=== PATIENT | female | born 1950 | race Caucasian/White ===

== ENCOUNTER 2022-04-13 21:53 | Inpatient (IN) | payer MEDICARE, BC ==
[~2022-04-13] VITALS: Ht 167.6 cm; Wt 76.7 kg
--- NOTE | 2022-04-13 22:00 | NUR ---
2100- The patient is a new admission. The patient comes from [facility]. The Patient is aox4, verbalizes needs promptly and timely. The patient has an IV access 18g rac that is patent, and intact. No changes in condition from baseline noted. Skin check done and pictures taken. The patient has scab on both left and right knee. The patient has small sacral redness. The patient has no sob or complains of pain. Notified both MD for rehab(George) and admit MD (Lyssa) of new admission. No s/s of infection noted. All needs anticipated and met. Call light within reach, two side rails up, bed at lowest position, bed alarm on. Will continue to monitor throughout the shift. 0000- The patient request for sleeping medication. Notified new MD(Sissy) for sleeping medication. The patient has no complains of pain or sob. Will continue to monitor throughout the shift. 0300- The patient is resting and has no complains of pain or sob. Will continue to monitor throughout the shift.
[2022-04-13] MEDS ORDERED: SERT-440 PO (22:38)
[2022-04-13] MEDS ORDERED: BUPR150T10 PO (22:38)
[2022-04-13] MEDS ORDERED: ACYC400T19 PO (22:38)
[2022-04-13] MEDS ORDERED: CEFT1PIG2 IV (22:38)
[2022-04-14] MEDS: TRAZODONE 100 MG TABLET PO SCH ×2 (02:19→23:04)
[2022-04-14 06:07] VITALS: BP 139/67
[2022-04-14 07:54] VITALS: BP 140/83
[2022-04-14] MEDS: CEFTRIAXONE 1 G in IV DEXTROSE 5% 50 ML IV SCH (14:59)
[2022-04-14] MEDS ORDERED: CLONAZEPAM 0.5 MG TABLET PO PRN (15:00)
[2022-04-14 15:27] VITALS: BP 149/76
[2022-04-14] MEDS ORDERED: ACYCLOVIR 400 MG TABLET PO SCH (17:00)
--- NOTE | 2022-04-14 18:49 | NUR ---
0730-Rec'd patient in bed, asleep, no respiratory distress, on R/A and manuel well. Patient able to wake up on verbal commands, denies any pain. Peripheral to RT FA flushing well. Oral fluids encouraged as manuel. Call light at reach and encouraged to use it for help every time needed. Safety measures in place. 0800-Medication not reconciled, MD has been informed to reconcile medications. 1000-Routine rounds done, patient awake, sitting on her bed, communicates verbally with out a problem, denies any discomfort, VSS and as follows: BP144/76, p81, temperature 97.4, oxygen saturation 97%. 1500-Medication reconciled, IV atb dose Rocephin 1gm initiated as ordered, no ASE noted; IV infusing well, no s/s of infiltration noted; patient denies bladder discomfort, voids well, no hematuria noted. 1800-Patient in bed, assisted as needed; routine rounds and care provided at routine intervals. All needs anticipated and met.
[2022-04-14 20:59] VITALS: BP 154/83
[2022-04-14 21:26] LABS: THYROID STIMULATING HORMONE 7.113 mIU/mL (0.358-3.740)
[2022-04-14] MEDS ORDERED: ONDANSETRON 4 MG/2 ML VIAL IV PRN (21:30)
--- NOTE | 2022-04-14 23:00 | NUR ---
1915-The patient is asleep, no respiratory distress, on R/A and tolerating well. Patient able to wake up on verbal commands, denies any pain. Patient has a patent IV access on the rac that is clean, dry, patent, and intact. Oral fluids encouraged as manuel. Call light at reach and encouraged to use it for help every time needed. Safety measures in place. 2200-The patient request for an extra pillow. Item is given to the patient. The patient has no sob. Will continue to monitor throughout the shift. 0500-Routine rounds done, patient asleep and has no complains of pain. Will continue to monitor throughout the shift.
[2022-04-15 04:28] VITALS: BP 138/73
[2022-04-15 07:23] LABS: HEMATOCRIT 38.4 % (31.2-41.9); MEAN CORPUSCULAR HEMOGLOBIN 33.7 uug (24.7-32.8); MEAN CORPUSCULAR VOLUME 100.4 fL (75.5-95.3); PLATELET COUNT (AUTO) 201 K/uL (179-408)
[2022-04-15 07:46] LABS: CREATININE 1.2 mg/dL (0.6-1.3); POTASSIUM 3.8 mmol/L (3.5-5.1)
[2022-04-15 08:00] VITALS: BP 118/66
[2022-04-15] MEDS: buPROPion SR 150 MG TABLET.SA PO SCH (08:43)
[2022-04-15] MEDS: SERTRALINE HCL 100 MG TABLET PO SCH (08:44)
[2022-04-15] MEDS: CEFTRIAXONE 1 G in IV DEXTROSE 5% 50 ML IV SCH (15:26)
--- NOTE | 2022-04-15 15:54 | NUR ---
patient was insisting to go home AMA, risks and benefits explained SAI Baldemar was on the phone, and caregiver was at bedside, patient verbalized understanding of it, and agreed to stay, patient had watery diarrhea in the morning x2, dark green color, [employer] Chyryl made aware, order to collect if continues, patient did not have any diarrhea since then. no acute distress noted.
[2022-04-15 20:38] VITALS: BP 137/72
[2022-04-15] MEDS: TRAZODONE 100 MG TABLET PO SCH (21:53)
--- NOTE | 2022-04-15 23:00 | NUR ---
1920-The patient is asleep, no respiratory distress, on R/A and tolerating well. Patient able to wake up on verbal commands, denies any pain. Patient has a patent IV access on the rac that is clean, dry, patent, and intact. Call light at reach and encouraged to use it for help every time needed. Safety measures in place. 2100-The patient request for an extra blanket. Item is given to the patient. The patient has no sob. Will continue to monitor throughout the shift. 0500-Routine rounds done, patient asleep and has no complains of pain. Will continue to monitor throughout the shift.
[2022-04-16 04:30] VITALS: BP 127/75
[2022-04-16] MEDS: LEVOTHYROXINE SODIUM 50 MCG TABLET PO SCH ×2 (06:51→19:00)
[2022-04-16 07:45] VITALS: BP 134/61
[2022-04-16 08:00] VITALS: BP 127/75
--- NOTE | 2022-04-16 08:53 | NUR ---
INDIVIDUALIZED PLAN OF CARE
[2022-04-16] MEDS: buPROPion SR 150 MG TABLET.SA PO SCH (10:26)
[2022-04-16] MEDS: SERTRALINE HCL 100 MG TABLET PO SCH (10:26)
[2022-04-16] MEDS: CEFTRIAXONE 1 G in IV DEXTROSE 5% 50 ML IV SCH (14:44)
--- NOTE | 2022-04-16 16:35 | NUR ---
SHIFT NOTE; RECEIVED PATIENT IN ROOM ALERT AND ORIENTED X4 PATIENT STATES"THEY ARE TRYING TO KILL ME." KEEP GIVING MEDICATION TO THAT KEEP ME TIRED". EXPLAINED TO PATIENT THAT I WON'T GIVE YOU THAT MEDICATION UNLESS YOU REQUEST IT . PT VERBALIZED UNDERSTANDING. PT HAD PT TODAY AND TOLERATED WELL NO SIGNS OF DISTRESS NOTED. WILL ENDORSE TO HS NURSE. FALL AND SAFETY PRECAUTION MAINTAINED.
[2022-04-16 16:36] VITALS: BP 120/65
[2022-04-16] MEDS: ENSURE ENLIVE (VAN) 240 ML LIQUID PO SCH (17:08)
[2022-04-16 20:00] VITALS: BP 114/62
[2022-04-16] MEDS: TRAZODONE 100 MG TABLET PO SCH (21:00)
[2022-04-17 04:00] VITALS: BP 119/67
[2022-04-17 07:00] LABS: HEMATOCRIT 38.2 % (31.2-41.9); MEAN CORPUSCULAR HEMOGLOBIN 34.2 uug (24.7-32.8); MEAN CORPUSCULAR VOLUME 100.1 fL (75.5-95.3); PLATELET COUNT (AUTO) 218 K/uL (179-408)
[2022-04-17 07:14] LABS: CREATININE 1.2 mg/dL (0.6-1.3); MAGNESIUM 1.9 mg/dL (1.8-2.4); PHOSPHOROUS 4.5 mg/dL (2.5-4.9); POTASSIUM 3.8 mmol/L (3.5-5.1)
[2022-04-17 07:49] VITALS: BP 111/58
[2022-04-17] MEDS: SERTRALINE HCL 100 MG TABLET PO SCH (08:27)
[2022-04-17] MEDS: buPROPion SR 150 MG TABLET.SA PO SCH (08:27)
[2022-04-17] MEDS: ENSURE ENLIVE (VAN) 240 ML LIQUID PO SCH ×2 (08:28→17:51)
--- NOTE | 2022-04-17 09:38 | NUR ---
0730-Rec'd patient in bed, awake, A/Ox4, able to make her needs known and follow directions. Patient on R/A and manuel. well. No s/s of respiratory distress noted. Call light within reach and encouraged to use it every time help is needed with good understanding. Fall precautions observed, encouraged patient to use call light for help every time needed with good understanding. Bed at low position with bed alarm on and in functioning order. 0900-Scheduled medication administered as ordered, no ASE noted. Patient compliant with treatment and care.
--- NOTE | 2022-04-17 10:49 | NUR ---
OOB at this time, ambulating ad shane in hallway using FWW and occupational therapist, patient tolerating well and actively able to participate in therapy.
[2022-04-17] MEDS ORDERED: HYDROCORTISONE 1% CREAM 30 GM TUBE TP PRN (14:15)
--- NOTE | 2022-04-17 14:38 | NUR ---
1420-SS doing rounds, spoke to patient as per SS staff input post interviewing patient. Patient is "very angry, closes and clenches her fist, voiced out she wants to kill herself" as per SS staff patient also stated to have a plan to kill herself "but I will not share it" 1430-Arrived to assess patient, patient reluctant to speak, limit herself to plead angrily "leave me alone" immediately placed patient under 1:1 supervision, surroundings inspected and cleared from any harmful items. Dr. Vazquez is informed, per MD patient to be seen by a psych as soon as possible. Dr. Chu (pyschiatrist) aware and to continue 1:1 supervisioj and contact crisis team/intake. Floor charge nurse and warehouse general laborer covering for the shift aware of patient's condition. Will monitor and follow up.
--- NOTE | 2022-04-17 14:58 | NUR ---
1440-Patient refused physical therapy at this time. Offered assist to patient and try to converse with, patient stated angrily,. "leave alone". Provided space to patient, however kept visible and under 1:1 supervision to ensure her safety. 1555-Patient with telephone cord in her hand, approached calmly and nice, asked patient to release the telephone cord and patient able to reasoned out. Telephone cord/call light/IV removed. And patient continues with 1:1 supervision. Addendum: 04/17/22 at 1506 by DARIEL HOOK RN 1440-Patient refused physical therapy at this time. Offered assist to patient and try to converse with, patient stated angrily,. "leave alone". Provided space to patient, however kept visible and under 1:1 supervision to ensure her safety. 1455 and not (1555)-Patient with telephone cord in her hand, approached calmly and nice, asked patient to release the telephone cord and patient able to reasoned out. Telephone cord/call light/IV removed. And patient continues with 1:1 supervision.
[2022-04-17 15:45] VITALS: BP 117/63
--- NOTE | 2022-04-17 16:08 | NUR ---
1620-Patient continues under 1:1 supervision, pending psych crisis eval. from staff (Braulio) with plans to place patient on a hold.
--- NOTE | 2022-04-17 16:14 | NUR ---
Patient in bed, awake, appears calmed. No s/s of physical or respiratory distress noted. 1:1 by her side and monitoring closely.
--- NOTE | 2022-04-17 19:18 | NUR ---
Braulio from crisis psych not here yet. Spoke to [facility] unit aid & stated Braulio is on his way to evaluate patient at this time. Patient is to remain under 1:1 supervision. Endorsement provided to luannving NOC RN for proper follow up.
[2022-04-17 20:00] VITALS: BP 123/67
--- NOTE | 2022-04-17 20:20 | NUR ---
Braulio DICKERSON came to see and evaluate the patient, patient was put on 72 hours hold.
[2022-04-17] MEDS: TRAZODONE 100 MG TABLET PO SCH ×2 (20:44→20:51)
[2022-04-18 04:00] VITALS: BP 103/64
--- NOTE | 2022-04-18 05:55 | NUR ---
Patient asleep but arousable, uncooperative with medications, cont on 1;1 sitter for safety. Patient appears depressed, episode of paranoia manifested by refusing medications, refused male nurse to clean her, female staff is the one cleans the patient, kept clean and dry, asking for phone with the cord, no phone, no cords, no sharp, plastic on the room cont to monitor.
[2022-04-18] MEDS: LEVOTHYROXINE SODIUM 50 MCG TABLET PO SCH (06:16)
[2022-04-18 08:00] VITALS: BP 113/63
[2022-04-18] MEDS: ENSURE ENLIVE (VAN) 240 ML LIQUID PO SCH (08:05)
[2022-04-18] MEDS: buPROPion SR 150 MG TABLET.SA PO SCH (08:47)
[2022-04-18] MEDS: SERTRALINE HCL 100 MG TABLET PO SCH (08:47)
--- NOTE | 2022-04-18 10:42 | NUR ---
0730-Upon shift exchange rounds, patient continues under 1:1 supervision/care and in her bed at this time, asleep, no respiratory distress noted; patient wakes up on verbal commands. No behavioral problems noted. Will continue to monitor and follow up. 0900-Scheduled medication, Wellbutrin/Zoloft administered as ordered; patient compliant with medication. 0930-Assisted patient with a phone call to Baldemar GIBBS, this card writer hand able to speak to Baldemar, per Baldemar he is aware of patients' "on and off goes through mood swings" and added "I know Sharita will say things but will never, never harm herself" Per Baldemar he spoke to , SS worker and disease case manager about discharging patient to a [facility] care/assisted living facility once patient is stable, per Baldemar he understands measures taken at the hospital is for patient's safety. 939-Spoke to Dr. hCu (psychiatrist) and per MD she will come and assess patient this morning. 944-Obtained orders from Dr. Loaiza PCP to convert patient to [facility] overflow care and continue with all safety measure protocol.
[2022-04-18] MEDS ORDERED: TRAZ-257 PO (21:02)
[2022-04-18] MEDS ORDERED: LACT296L PO (21:02)
[2022-04-18] MEDS ORDERED: LEVO50TA8 PO (21:02)
[2022-04-18] MEDS ORDERED: CLON0.5T PO (21:02)
[2022-04-18] MEDS ORDERED: BUPR-78 PO (21:02)
[2022-04-18] MEDS ORDERED: SERT100T PO (21:02)
== END 2022-04-18 14:30 | DRG 689 ==
LOC: UNDODISIN 04-18 11:03
PROVIDERS: ADMIT Physical Medicine & Rehabilitation Pain Medicine; ATTEND Physical Medicine & Rehabilitation Pain Medicine
DX: N39.0 Urinary tract infection, site not specified (principal); E43 Unspecified severe protein-calorie malnutrition; G93.41 Metabolic encephalopathy; N17.0 Acute kidney failure with tubular necrosis; R45.851 Suicidal ideations; R53.1 Weakness; E03.9 Hypothyroidism, unspecified; E86.0 Dehydration; F32.9 Major depressive disorder, single episode, unspecified; E86.1 Hypovolemia; E88.09 Other disorders of plasma-protein metabolism, not elsewhere classified; F41.9 Anxiety disorder, unspecified; Z86.19 Personal history of other infectious and parasitic diseases
CPT/HCPCS: 36415; 70450; 82747; 83735; 83921; 84100; 84207; 84443; 84480; 85014; 85025; J0696; J2405

== ENCOUNTER 2022-04-18 11:25 | Inpatient (IN) | payer MEDICARE, BC ==
[~2022-04-18] VITALS: Ht 167.6 cm; Wt 76.7 kg
[2022-04-18 08:00] VITALS: BP 113/63
[~2022-04-18 11:25] MED LIST: ACYC400T19 PO; BUPR150T10 PO; CEFT1PIG2 IV; SERT-440 PO
[2022-04-18] MEDS ORDERED: REMEDY ESSENTIAL ZINC PASTE 113 GM TOP PRN (12:00)
[2022-04-18] MEDS: DIVALPROEX SPRINKLE 125 MG CAP.SPRINK PO SCH ×2 (13:18→16:33)
[2022-04-18] MEDS: QUETIAPINE FUMARATE 25 MG TABLET PO SCH ×2 (13:18→21:11)
[2022-04-18] MEDS: TRIAMCINOLONE ACET 0.1% CREAM 15 GM TUBE TOP SCH (13:45)
[2022-04-18 16:29] VITALS: BP 142/75
[2022-04-18] MEDS ORDERED: OLANZAPINE 10 MG VIAL IM ONE (19:45)
[2022-04-18] MEDS ORDERED: CLON0.5T PO (21:02)
[2022-04-18] MEDS ORDERED: SERT100T PO (21:02)
[2022-04-18] MEDS ORDERED: LEVO50TA8 PO (21:02)
[2022-04-18] MEDS ORDERED: LACT296L PO (21:02)
[2022-04-18] MEDS ORDERED: BUPR-78 PO (21:02)
[2022-04-18] MEDS ORDERED: TRAZ-257 PO (21:02)
[2022-04-18] MEDS: REMEDY ESSENTIAL ZINC PASTE 113 GM TOP SCH (21:12)
[2022-04-19 07:56] VITALS: BP 112/66
[2022-04-19] MEDS ORDERED: TEMAZEPAM 7.5 MG CAPSULE PO PRN (10:00)
[2022-04-19] MEDS ORDERED: MAGNESIUM HYDROXIDE 30 ML LIQUID UDC PO PRN (10:00)
[2022-04-19] MEDS ORDERED: ACETAMINOPHEN 325 MG TABLET PO PRN (10:00)
[2022-04-19] MEDS ORDERED: MAG HYDROX/AL HYDROX/SIMETH 30 ML LIQUID UDC PO PRN (10:00)
[2022-04-19] MEDS: DIVALPROEX SPRINKLE 125 MG CAP.SPRINK PO SCH ×2 (11:32→17:15)
[2022-04-19] MEDS: QUETIAPINE FUMARATE 25 MG TABLET PO SCH (11:32)
[2022-04-19 15:09] VITALS: BP 115/69
[2022-04-19] MEDS: REMEDY ESSENTIAL ZINC PASTE 113 GM TOP SCH ×2 (17:28→20:30)
[2022-04-19] MEDS: TRIAMCINOLONE ACET 0.1% CREAM 15 GM TUBE TOP SCH (18:26)
[2022-04-19 20:00] VITALS: BP 116/64
[2022-04-19] MEDS: OLANZAPINE ZYDIS 5 MG TAB.RAPDIS PO SCH (20:29)
[2022-04-20 08:00] VITALS: BP 103/50
[2022-04-20] MEDS: DIVALPROEX SPRINKLE 125 MG CAP.SPRINK PO SCH ×3 (08:54→17:17)
[2022-04-20] MEDS: REMEDY ESSENTIAL ZINC PASTE 113 GM TOP SCH ×2 (08:54→21:00)
[2022-04-20] MEDS: TRIAMCINOLONE ACET 0.1% CREAM 15 GM TUBE TOP SCH (08:54)
[2022-04-20] MEDS ORDERED: ACYCLOVIR 200 MG CAPSULE PO SCH (13:00)
[2022-04-20 16:05] VITALS: BP 123/73
[2022-04-20 21:15] VITALS: BP 105/50
[2022-04-20] MEDS: ACYCLOVIR 200 MG CAPSULE PO SCH (21:59)
[2022-04-20] MEDS: OLANZAPINE ZYDIS 5 MG TAB.RAPDIS PO SCH (21:59)
[2022-04-20] MEDS: LORAZEPAM 0.5 MG TABLET PO PRN (22:00)
[2022-04-21 07:35] VITALS: BP 117/63
[2022-04-21] MEDS: ACYCLOVIR 200 MG CAPSULE PO SCH ×2 (08:23→20:38)
[2022-04-21] MEDS: TRIAMCINOLONE ACET 0.1% CREAM 15 GM TUBE TOP SCH (08:23)
[2022-04-21] MEDS: DIVALPROEX SPRINKLE 125 MG CAP.SPRINK PO SCH ×3 (08:23→16:48)
[2022-04-21] MEDS: REMEDY ESSENTIAL ZINC PASTE 113 GM TOP SCH ×2 (08:24→21:31)
[2022-04-21 08:48] LABS: HEMATOCRIT 41.9 % (31.2-41.9); MEAN CORPUSCULAR HEMOGLOBIN 33.7 uug (24.7-32.8); MEAN CORPUSCULAR VOLUME 101.4 fL (75.5-95.3); PLATELET COUNT (AUTO) 349 K/uL (179-408)
[2022-04-21 09:05] LABS: BILIRUBIN,TOTAL 0.4 mg/dL (0.2-1.0); CREATININE 1.2 mg/dL (0.6-1.3); POTASSIUM 3.8 mmol/L (3.5-5.1)
[2022-04-21 15:38] VITALS: BP 129/85
[2022-04-21] MEDS: OLANZAPINE ZYDIS 5 MG TAB.RAPDIS PO SCH (20:38)
[2022-04-21 20:50] VITALS: BP 102/59
[2022-04-22 07:48] VITALS: BP 109/64
[2022-04-22] MEDS: ACYCLOVIR 200 MG CAPSULE PO SCH ×2 (08:19→20:50)
[2022-04-22] MEDS: DIVALPROEX SPRINKLE 125 MG CAP.SPRINK PO SCH ×3 (08:20→16:53)
[2022-04-22] MEDS: TRIAMCINOLONE ACET 0.1% CREAM 15 GM TUBE TOP SCH (08:21)
[2022-04-22] MEDS: REMEDY ESSENTIAL ZINC PASTE 113 GM TOP SCH ×2 (08:22→20:51)
[2022-04-22 18:09] VITALS: BP 121/69
[2022-04-22] MEDS: OLANZAPINE ZYDIS 5 MG TAB.RAPDIS PO SCH (20:50)
[2022-04-22 21:03] VITALS: BP 104/62
[2022-04-23] MEDS: LEVOTHYROXINE SODIUM 25 MCG TABLET PO SCH (06:25)
[2022-04-23] MEDS: LORAZEPAM 0.5 MG TABLET PO PRN ×2 (06:29→20:17)
[2022-04-23 08:15] VITALS: BP 115/67
[2022-04-23] MEDS: DIVALPROEX SPRINKLE 125 MG CAP.SPRINK PO SCH ×3 (08:53→17:16)
[2022-04-23] MEDS: ACYCLOVIR 200 MG CAPSULE PO SCH ×2 (08:54→20:17)
[2022-04-23] MEDS: REMEDY ESSENTIAL ZINC PASTE 113 GM TOP SCH (08:54)
[2022-04-23] MEDS: TRIAMCINOLONE ACET 0.1% CREAM 15 GM TUBE TOP SCH (08:54)
[2022-04-23 16:27] VITALS: BP 128/82
[2022-04-23 20:15] VITALS: BP 132/66
[2022-04-23] MEDS: OLANZAPINE ZYDIS 5 MG TAB.RAPDIS PO SCH (20:17)
[2022-04-24] MEDS: REMEDY ESSENTIAL ZINC PASTE 113 GM TOP SCH ×2 (04:33→09:23)
[2022-04-24] MEDS: LEVOTHYROXINE SODIUM 25 MCG TABLET PO SCH (07:56)
[2022-04-24 07:57] VITALS: BP 106/63
[2022-04-24] MEDS: ACYCLOVIR 200 MG CAPSULE PO SCH (09:22)
[2022-04-24] MEDS: DIVALPROEX SPRINKLE 125 MG CAP.SPRINK PO SCH ×2 (09:22→11:57)
[2022-04-24] MEDS: TRIAMCINOLONE ACET 0.1% CREAM 15 GM TUBE TOP SCH (09:23)
== END 2022-04-24 16:15 | disposition home or self-care (01) | DRG 885 ==
LOC: GPSOV3 11:25 → UNDODISIN 18:20 → GPS 18:37
PROVIDERS: ADMIT Psychiatry & Neurology Psychosomatic Medicine; ATTEND Internal Medicine
DX: F31.30 Bipolar disorder, current episode depressed, mild or moderate severity, unspecified (principal); R45.851 Suicidal ideations; E44.1 Mild protein-calorie malnutrition; F41.9 Anxiety disorder, unspecified; F60.3 Borderline personality disorder; F60.9 Personality disorder, unspecified; E66.8 Other obesity; Z68.27 Body mass index [BMI] 27.0-27.9, adult; E03.9 Hypothyroidism, unspecified; B00.9 Herpesviral infection, unspecified; Z87.440 Personal history of urinary (tract) infections; R41.9 Unspecified symptoms and signs involving cognitive functions and awareness
CPT/HCPCS: 36415; 80164; 85025; J2358